=== PATIENT | female | born 1970 | race Caucasian/White ===

== ENCOUNTER 2018-10-08 16:17 | Inpatient (IN) | payer OTHER ==
[~2018-10-08] VITALS: Ht 162.6 cm; Wt 68.0 kg
[2018-10-08 17:53] LABS: CALCIUM 8.7 mg/dL (8.5-10.1); CARBON DIOXIDE 27.3 mmol/L (21-32); CHLORIDE SERUM 102 mmol/L (98-107); CREATININE SERUM 0.8 mg/dL (0.6-1.0); GFR1 > 60 mL/min; SODIUM SERUM 141 mmol/L (136-145)
[2018-10-08 17:58] LABS: ALKALINE PHOSPHATASE 104 U/L (46-116); ALT/SGPT 32 U/L (14-59); AST/SGOT 93 U/L (15-37); BILIRUBIN TOTAL 4.25 mg/dL (0.20-1.00); TOTAL PROTEIN, SERUM 7.9 g/dL (6.4-8.2)
[2018-10-08 18:07] LABS: GLUCOSE SERUM 164 mg/dL (74-106)
[2018-10-08 18:13] LABS: ALBUMIN 2.6 g/dL (3.4-5.0)
[2018-10-08 18:14] LABS: POTASSIUM SERUM 4.6 mmol/L (3.5-5.1)
[2018-10-08 18:47] LABS: RED CELL DISTRIBUTION WIDTH 15.4 % (11.5-14.5)
[2018-10-08 18:49] LABS: PLATELET COUNT 55 x10^3mcL (130-400)
[2018-10-08 20:48] LABS: microscopic required? YES; urine erythrocyte NEGATIVE (NEGATIVE)
[2018-10-08 21:03] LABS: MAGNESIUM 1.8 mg/dL (1.8-2.4)
[2018-10-08 21:04] LABS: CHOLESTEROL/HDL RATIO 2.2
[2018-10-08 21:06] LABS: AMPHETAMINE QUAL UR NONE DETECTED (See below)
[2018-10-08 21:39] VITALS: BP 141/64
[2018-10-08 22:59] LABS: BILIRUBIN DIRECT 1.32 mg/dL (0.0-0.2); BILIRUBIN TOTAL 4.2 mg/dL (0.20-1.00)
[2018-10-09 05:53] VITALS: BP 146/69
[2018-10-09 07:16] LABS: CALCIUM 8.3 mg/dL (8.5-10.1); CARBON DIOXIDE 30.1 mmol/L (21-32); CHLORIDE SERUM 110 mmol/L (98-107); CREATININE SERUM 0.7 mg/dL (0.6-1.0); GFR1 > 60 mL/min; GLUCOSE SERUM 136 mg/dL (74-106); POTASSIUM SERUM 3.9 mmol/L (3.5-5.1); SODIUM SERUM 145 mmol/L (136-145)
[2018-10-09 07:31] LABS: BASOPHIL % 0.3 % (0-2); RED CELL DISTRIBUTION WIDTH 14.4 % (11.5-14.5)
[2018-10-09 07:39] LABS: PLATELET COUNT 28 x10^3mcL (130-400)
[2018-10-09 07:56] LABS: IRON 167 ug/dL (50-170); TOTAL IRON BINDING CAPACITY 168 ug/dL (250-450)
[2018-10-09 08:59] VITALS: BP 129/77
[2018-10-09 11:10] LABS: RED BLOOD CELLS 2.42 M/mm3 (4.10-5.10)
[2018-10-09 13:58] VITALS: BP 135/74
[2018-10-09 17:09] VITALS: BP 109/68
[2018-10-09 21:40] VITALS: BP 137/73
[2018-10-10 06:08] VITALS: BP 123/62
[2018-10-10 06:39] LABS: CARBON DIOXIDE 26.9 mmol/L (21-32); CHLORIDE SERUM 115 mmol/L (98-107); CREATININE SERUM 0.6 mg/dL (0.6-1.0); GFR1 > 60 mL/min; GLUCOSE SERUM 114 mg/dL (74-106); MAGNESIUM 2.2 mg/dL (1.8-2.4); PHOSPHOROUS 2.6 mg/dL (2.5-4.9); POTASSIUM SERUM 3.5 mmol/L (3.5-5.1); SODIUM SERUM 149 mmol/L (136-145)
[2018-10-10 09:29] VITALS: BP 124/63
[2018-10-10 12:51] VITALS: BP 128/64
[2018-10-10 17:31] VITALS: BP 144/78
[2018-10-10 21:36] VITALS: BP 127/69
[2018-10-11 01:26] LABS: BASOPHIL % 1.1 % (0-2)
[2018-10-11 01:30] LABS: RED CELL DISTRIBUTION WIDTH 15.3 % (11.5-14.5)
[2018-10-11 01:34] LABS: PLATELET COUNT 34 x10^3mcL (130-400)
[2018-10-11 06:15] LABS: BASOPHIL % 0.7 % (0-2)
[2018-10-11 06:18] VITALS: BP 124/70
[2018-10-11 06:27] LABS: CALCIUM 7.7 mg/dL (8.5-10.1); CHLORIDE SERUM 110 mmol/L (98-107); CREATININE SERUM 0.7 mg/dL (0.6-1.0); GFR1 > 60 mL/min; GLUCOSE SERUM 115 mg/dL (74-106); POTASSIUM SERUM 3.2 mmol/L (3.5-5.1); SODIUM SERUM 146 mmol/L (136-145)
[2018-10-11 06:37] LABS: RED CELL DISTRIBUTION WIDTH 15.4 % (11.5-14.5)
[2018-10-11 08:32] VITALS: BP 117/64
[2018-10-11 08:58] LABS: PLATELET COUNT 35 x10^3mcL (130-400)
[2018-10-11] MEDS ORDERED: GOOD SENSE OMEP20 MG PO (10:12)
[2018-10-11] MEDS ORDERED: COLACE100 MG PO (10:13)
[2018-10-11] MEDS ORDERED: IND20 PO (10:13)
[2018-10-11] MEDS ORDERED: FERROUS SULFAT325 M2 PO (10:13)
[2018-10-11 11:10] VITALS: BP 117/64
== END 2018-10-11 14:30 | disposition home or self-care (01) | DRG 280 ==
LOC: ED 16:17 → DU 19:29
PROVIDERS: Emergency Medicine; Internal Medicine; Internal Medicine Gastroenterology; ADMIT General Practice
PROC: 06L38CZ Occlusion of Esophageal Vein with Extraluminal Device, Via Natural or Artificial Opening Endoscopic (ICD-10-PCS; principal; 2018-10-09 10:30)
DX: K70.30 Alcoholic cirrhosis of liver without ascites (principal); I85.11 Secondary esophageal varices with bleeding; D68.4 Acquired coagulation factor deficiency; D69.6 Thrombocytopenia, unspecified; K76.6 Portal hypertension; I85.10 Secondary esophageal varices without bleeding; Y90.0 Blood alcohol level of less than 20 mg/100 ml; I10 Essential (primary) hypertension; K31.89 Other diseases of stomach and duodenum; D53.9 Nutritional anemia, unspecified; Z98.891 History of uterine scar from previous surgery
CPT/HCPCS: 43235; 87046; 87046-59; C9113; G0480; J0690; J1200; J2060; J2250; J2310; J2354; J2405; J3010; J3430; J3490; J7030; J7040; Q0092